=== PATIENT | female | born 1980 | race Caucasian/White ===

== ENCOUNTER → 2016-04-06 | Outpatient (CLI) | payer BC ==
[~2016-04-06] VITALS: Ht 152.4 cm; Wt 94.5 kg
[~2016-04-06] MED LIST: CYANOCOBALAM1000 MCG PO; FISH OIL 1,0001 EAC8 PO; LEVOTHYROXINE88 MCG PO; NORCO 5/3251 TABLET PO; TESSALON PERLE100 MG PO; VIBRAMYCIN100 MG PO; VITAMIN D22000 UNIT PO; VITAMIN D35000 UNIT PO; probiotic gummies PO
[2016-04-06 07:00] VITALS: BP 195/105
== END | disposition home or self-care (01) ==
LOC: IVINF 06:44
PROVIDERS: Internal Medicine Endocrinology, Diabetes & Metabolism
DX: R53.83 Other fatigue (principal); Z88.5 Allergy status to narcotic agent; Z88.8 Allergy status to other drugs, medicaments and biological substances
CPT/HCPCS: 80400; 82024 90; 82533 91; 96374; J0834